=== PATIENT | female | born 1960 | race Caucasian/White ===

== ENCOUNTER 2018-11-16 11:59 | Outpatient (REF) | payer BC, SELFPAY ==
[2018-11-16 21:15] LABS: Calculated LDL 191 mg/dL; Cholesterol 278 mg/dL (50-200); HDL Cholesterol 70 mg/dL (40-60); Triglyceride 87 mg/dL (30-150)
[2018-11-17 17:04] LABS: Glucose 90 mg/dL (70-100); TSH 4.17 uIU/mL (0.358-3.74)
== END 2018-11-16 12:19 ==
LOC: NCHCN 11:59
PROVIDERS: PCP Physician Assistant Medical; Visit Provider Physician Assistant Medical
DX: Z00.00 Encounter for general adult medical examination without abnormal findings (principal); E03.9 Hypothyroidism, unspecified; Z13.1 Encounter for screening for diabetes mellitus
CPT/HCPCS: 80061; 82947; 83721; 84443

== ENCOUNTER 2018-12-02 00:40 | Outpatient (CLI) | payer BC, SELFPAY ==
--- NOTE | 2018-12-02 10:10 | DI.MAMMO_ITS ---
SYMPTOM/DIAGNOSIS: HEALTH MAINT EXAM Z00.8 BILATERAL SCREENING MAMMOGRAM: Mammograms were interpreted according to the usual protocol including computer analysis with CAD system, tomosynthesis and C view imaging. Comparison is made with exams from 2013 through 2017. The breasts are composed of scattered fibroglandular densities, breast density category B. No suspicious masses or suspicious microcalcifications are seen. There has been no significant change. IMPRESSION: Category 1, negative mammogram. Yearly screening mammography is recommended. Breast density category B. SA ASSESSMENT OF FINDINGS: Negative. Category 1. Patient will receive a letter notifying them of these results. BI-RADS category B. There are scattered areas of fibroglandular density.
== END 2018-12-02 01:00 ==
PROVIDERS: PCP Physician Assistant Medical; Visit Provider Physician Assistant Medical
DX: Z00.00 Encounter for general adult medical examination without abnormal findings (principal); Z12.31 Encounter for screening mammogram for malignant neoplasm of breast
CPT/HCPCS: 77063; 77067

== ENCOUNTER 2019-01-20 15:18 | Outpatient (CLI) | payer BC, SELFPAY | END 2019-01-20 15:38 | PROVIDERS: PCP Physician Assistant Medical; Visit Provider Physician Assistant Medical | DX: E03.9 Hypothyroidism, unspecified (principal) | CPT/HCPCS: 36415; 84443 ==

== ENCOUNTER 2020-12-04 12:29 | Outpatient (REF) | payer OTHER, SELFPAY ==
[2020-12-04 22:01] LABS: TSH 2.27 uIU/mL (0.36-3.74)
== END 2020-12-04 12:30 | disposition home or self-care (01) ==
LOC: NCHCN 12:29
PROVIDERS: PCP Physician Assistant Medical; Visit Provider Physician Assistant Medical
DX: E03.9 Hypothyroidism, unspecified (principal)
CPT/HCPCS: 84443

== ENCOUNTER 2021-01-21 02:01 | Outpatient (CLI) | payer OTHER, SELFPAY ==
--- NOTE | 2021-01-21 08:30 | DI.MAMMO_ITS ---
Exam(s) MAMMO SCREENING EXAM: MAMMO SCREENING CLINICAL HISTORY: SCREENING,HEALTH MAINTENANCE EXAM,Z00.8 TECHNIQUE: Mammograms were interpreted according to the usual protocol including computer analysis w [employer] CAD system, tomosynthesis and C-view imaging. COMPARISON: 2012 through 2018 FINDINGS: The breasts are composed of scattered fibroglandular densities, Breast Density category B. No suspicious masses or suspicious microcalcifications are seen. No skin thickening or abnormal axillary lymph nodes are seen. There has been no significant change from prior exams. IMPRESSION: BI-RADS Category 1, Negative mammogram Yearly screening mammography is recommended. Breast Density - Category B, scattered fibroglandular densities. A negative radiographic report should not delay biopsy if a dominant or clinically suspicious mass is present. Up to ten percent of cancers are not identified on mammography. A negative report may reinforce clinical impression. Adenosis and dense breasts may obscure an underlying neoplasm. False positive reports average 6 to 10%. Patient will receive a letter notifying them of these results.
== END 2021-01-21 02:21 ==
PROVIDERS: PCP Physician Assistant Medical; Visit Provider Physician Assistant Medical
DX: Z12.31 Encounter for screening mammogram for malignant neoplasm of breast (principal)
CPT/HCPCS: 77063; 77067

== ENCOUNTER 2022-04-18 10:19 | Emergency (ER) | payer OTHER, SELFPAY ==
[2022-04-18 10:32] VITALS: BP 160/90; PULSE 59; RESP 18; TEMP 36.9; O2SAT 97
[2022-04-18 10:36] VITALS: BP 160/90; PULSE 59; RESP 18; TEMP 36.9; O2SAT 97
--- NOTE | 2022-04-18 10:49 | ED.GENADUL_ITS ---
Discharge Plan Disposition Patient Disposition: Home Discharge Details Clinical Impression: Back pain Primary Care Provider: Susan Ellis ED Provider: Coleman Stout Home Meds and New Rx's Prescriptions: No Action citalopram 20 MG tablet 20 mg PO DAILY Discharge Instructions Instructions: Back Pain (ED) Additional Instructions: Please apply 1 lidocaine patch 4% [id number], or the affected area 12 hours a day. I suggest you use the Lyrica titrating the day so that at night you may apply some warm compresses. You may take up to 400 mg every 8 hours for the pain you may also take Tylenol 650 mg every 6 hours for the pain. Please follow-up with physical therapy as planned and then follow-up with your primary care doctor. Medical Decision Making Patient with what appears to be musculoskeletal pain. I have advised her to use some [id number] lidocaine patch and continue taking Tylenol Motrin for the pain. I have advised her to pursue physical therapy as ordered by her primary care doctor. I do not believe she requires any blood work or any imaging at this point Sign Out No HPI General Date/Time Provider Initiated Documentation: 04/18/22 10:49 . HPI Narrative: 62-year-old lady presents to the emergency room for evaluation of right upper back pain. She states the pain started proximately 2 months ago. She attributes it to long drive to [place] over the summer because her son was hospitalized at [facility]. The pain has been progressively getting worse. Is located to the right upper underneath the rib line. Pain is worse with range of motion. Pain is worse with touching. She had not noticed but the pain appears to be exacerbated but deep breath. The pain got worse last night. She took some ibuprofen. She had reached out to her primary care doctor who has ordered some physical therapy that has not started yet. No chest pain. No shortness of breath. No dysuria. No frequency no hematuria. No fevers no chills Related Data Home Medications Medication Instructions Recorded Confirmed citalopram 20 mg tablet 20 mg PO DAILY 02/11/13 02/11/13 Allergies Allergy/AdvReac Type Severity Reaction Status Date / Time No Known Allergies Allergy Unverified 02/11/13 08:53 Review of Systems Narrative: Constitutional is been negative for fever chills, negative for malaise, negative for fatigue. Eyes: No visual changes, no tearing ENT: No sore throat, no pain in the ears, no hearing change, no rhinorrhea Cardiovascular no chest pain, no shortness of breath with exertion, no palpitations, no lightheadedness Respiratory: No shortness of breath, no cough, GI: No abdominal pain, no diarrhea, no nausea, no vomiting, no dark stools : No dysuria, no frequency, no hematuria MSK: No myalgias, no arthralgias Skin: No rash Neurological: No headaches, no focal weakness, no paresthesias, no dizziness Psych: No anxiety, no depression Endo: No weight gain no weight loss Hematology/lymph: No painful nodes, no easy bleeding, not on blood thinners PFSH All Active Problems (Updated 04/18/22 @ 10:58 by Coleman Stout MD) Back pain (Acute) Social History Smoking/Tobacco Use Status: Never Smoking risk assessment performed?: Yes Drug use: Never Exam Narrative Exam Narrative: General: A,A Ox3, Calm, no apparent distress, well developed, pleasant and cooperative Head Size/Shape: normocephalic, atraumatic Eyes Pupils: PERRLA Extraocular Mobility: intact and symmetrical Conjunctiva: non-injected, anicteric, no discharge Oral Cavity: moist Neck supple Respiratory Respiratory Effort: no dyspnea Auscultation: normal WOB Cardiovascular nornal cap refill Musculoskeletal System Joints, Bones, and Muscles: no deformities Back. Normal inspection. No midline tenderness. He is got discrete tenderness palpation over the right upper back. This appears muscular in etiology. No crepitus. No deformities no masses Extremities: warm and well-perfused, no cyanosis, capillary refill <2 seconds Skin Skin Inspection: no rash, no lesions, no bruising Neurological Motor: normal tone, normal strength, moving all extremities equally Psychiatric: good insight, good judgement, normal mood and affect
== END 2022-04-18 17:55 | disposition home or self-care (01) ==
PROVIDERS: Emergency Provider Emergency Medicine; PCP Physician Assistant Medical
DX: M54.9 Dorsalgia, unspecified (principal)
CPT/HCPCS: 99282

== ENCOUNTER 2022-05-22 09:47 | Outpatient (REF) | payer OTHER, SELFPAY ==
[2022-05-22 15:28] LABS: ALT 19 U/L (14-59); AST 22 U/L (15-37); Albumin 3.6 g/dL (3.4-5.0); Alkaline Phosphatase 78 U/L (46-116); BUN 18 mg/dL (7-18); Bilirubin, Total 0.5 mg/dL (0.2-1.0); Calcium 9.2 mg/dL (8.5-10.1); Calculated LDL 221 mg/dL (<100); Chloride 104 mmol/L (98-107); Cholesterol 315 mg/dL (<200); Estimated GFR 64.49 (mL/min/1.73m2); Glucose 95 mg/dL (74-106); HDL Cholesterol 71 mg/dL (40-60); Potassium 4.3 mmol/L (3.5-5.1); Sodium 139 mmol/L (136-145); TSH 3.31 uIU/mL (0.36-3.74); Total Protein 7.5 g/dL (6.4-8.2); Triglyceride 119 mg/dL (<150)
== END 2022-05-22 09:48 | disposition home or self-care (01) ==
LOC: NCHCN 09:47
PROVIDERS: PCP Physician Assistant Medical; Visit Provider Physician Assistant Medical
DX: Z00.00 Encounter for general adult medical examination without abnormal findings (principal); E03.9 Hypothyroidism, unspecified
CPT/HCPCS: 80053; 80061; 84443

== ENCOUNTER 2022-09-24 11:35 | Outpatient (REF) | payer OTHER, SELFPAY ==
[2022-09-24 16:27] LABS: ALT 31 U/L (14-59); AST 20 U/L (15-37); Albumin 3.7 g/dL (3.4-5.0); Alkaline Phosphatase 91 U/L (46-116); Anion Gap 6.2 mmol/L (3-11); BUN 13 mg/dL (7-18); Bilirubin, Total 0.4 mg/dL (0.2-1.0); CO2 29.8 mmol/L (21.0-32.0); CREATININE 0.9 mg/dL (0.55-1.02); Calcium 9.2 mg/dL (8.5-10.1); Calculated LDL 128 mg/dL (<100); Chloride 103 mmol/L (98-107); Cholesterol 228 mg/dL (<200); Estimated GFR 73.19 (mL/min/1.73m2); Glucose 92 mg/dL (74-106); HDL Cholesterol 78 mg/dL (40-60); Potassium 4.2 mmol/L (3.5-5.1); Sodium 139 mmol/L (136-145); Total Protein 7.6 g/dL (6.4-8.2); Triglyceride 111 mg/dL (<150)
== END 2022-09-24 11:36 | disposition home or self-care (01) ==
LOC: NCHCN 11:35
PROVIDERS: PCP Physician Assistant Medical; Visit Provider Physician Assistant Medical
DX: Z00.00 Encounter for general adult medical examination without abnormal findings (principal); E03.9 Hypothyroidism, unspecified
CPT/HCPCS: 80053; 80061; 84443

== ENCOUNTER 2023-05-05 10:25 | Outpatient (REF) | payer OTHER, SELFPAY ==
[2023-05-05 17:15] LABS: Calculated LDL 228 mg/dL (<100); Cholesterol 324 mg/dL (<200); HDL Cholesterol 73 mg/dL (40-60); TSH 3.64 uIU/mL (0.36-3.74); Triglyceride 119 mg/dL (<150)
[2023-05-05 17:23] LABS: Hemoglobin A1C 5.9 % (<5.7)
== END 2023-05-05 10:26 | disposition home or self-care (01) ==
LOC: NCHCN 10:25
PROVIDERS: PCP Physician Assistant Medical; Visit Provider Physician Assistant Medical
DX: E03.9 Hypothyroidism, unspecified (principal); E78.5 Hyperlipidemia, unspecified; R73.03 Prediabetes
CPT/HCPCS: 80061; 83036; 84443

== ENCOUNTER → 2023-05-28 02:06 | Outpatient (CLI) | payer OTHER, SELFPAY ==
--- NOTE | 2023-05-28 | DI.MAMMO_ITS ---
Exam(s) MAMMO SCREENING EXAM: MAMMO SCREENING CLINICAL HISTORY: SCREENING MAMMO FOR BREAST CANCER Z12.31 TECHNIQUE: Mammograms were interpreted according to the usual protocol including computer analysis w [employer] CAD system, tomosynthesis and C-view imaging. COMPARISON: 2014 through 2020 FINDINGS: The breasts are composed of scattered fibroglandular densities, Breast Density category B. No suspicious masses or suspicious microcalcifications are seen. No skin thickening or abnormal axillary lymph nodes are seen. There has been no significant change from prior exams. IMPRESSION: BI-RADS Category 1, Negative mammogram Yearly screening mammography is recommended. Breast Density - Category B, scattered fibroglandular densities. A negative radiographic report should not delay biopsy if a dominant or clinically suspicious mass is present. Up to ten percent of cancers are not identified on mammography. A negative report may reinforce clinical impression. Adenosis and dense breasts may obscure an underlying neoplasm. False positive reports average 6 to 10%. Patient will receive a letter notifying them of these results.
== END ==
PROVIDERS: PCP Physician Assistant Medical; Visit Provider Physician Assistant Medical
DX: Z12.31 Encounter for screening mammogram for malignant neoplasm of breast (principal); R92.323 Mammographic fibroglandular density, bilateral breasts
CPT/HCPCS: 77063; 77067

== ENCOUNTER 2024-03-28 07:38 | Day surgery (SDC) | payer OTHER, SELFPAY ==
--- NOTE | 2024-03-27 15:47 | W.PM.DSUDISC ---
Date of service: 03/28/24 Time of Service: 09:35 Discharge Plan Disposition Patient Disposition: Home Condition: Good Discharge Details Reason For Visit: screening colonoscopy Attending Provider: Kye Sanches Primary Care Provider: Susan Ellis Home Meds and New Rx's Prescriptions: Continued atorvastatin 10 mg tablet 10 mg PO DAILY fluticasone propionate 220 mcg/actuation HFA aerosol inhaler 2 puff inhalation BID PRN levothyroxine [Synthroid] 88 mcg tablet 100 mcg PO DAILY Discontinued bisacodyl [Dulcolax (bisacodyl)] 5 mg tablet,delayed release (DR/EC) 5 mg PO ONCE Qty: 4 0RF Rx Instructions: Take per colonoscopy instructions provided by ordering providers office polyethylene glycol 3350 17 gram/dose powder 17 g PO ONCE Qty: 238 0RF Rx Instructions: Take per colonoscopy instructions provided by ordering providers office Discharge Instructions Instructions: Colon polyps, Diverticulosis Additional Instructions: Ivana, is very nice meeting you today, and I hope you were comfortable during the procedure. I did find, and removed, and a single polyp today. This will be sent off for testing, since polyps, different varieties, and we will use that information to guide the timing of your next colonoscopy. Those results usually take a week or 2, but once the office has them, we will be in touch. If you have any questions at all or need anything in the meantime, please do not hesitate to ask. 1. If tolerated, consume a soft, low fiber diet for 1-2 days. [address] Do not drive, drink alcohol, operate machinery, make critical decisions, or do activities that require coordination or balance for 24 hours. 3. Because air was put into your colon during the procedure, expelling air from your rectum (passing gas or farting) is normal. 4. You may not have a bowel movement for 1-3 days because of the colonoscopy prep. This is normal. 5. Go directly to the emergency room if you notice any of the following: Develop chills (warm to touch), or if you have a thermometer and your temperature is above 101 Difficulty breathing or difficultly swallowing Persistent vomiting Severe abdominal pain, other than gas cramps Severe chest pain Black, tarry stools Any bleeding ? exceeding one tablespoon 6. Call your physician if the site where your intravenous was started becomes red, swollen, painful, and warm to touch. 7. Your physician has reviewed your pre-procedure medications. Please continue to take those medications as previously ordered. You will be given specific information/education regarding any changes to your medications before leaving. Stand Alone Forms: Anesthesia Discharge InstRylie Gallagher (DSU) Activity:: Activity as Tolerated Diet:: As Tolerated Discharge Orders Discharge Orders: Discharge Order (Routine); Ordered 03/27/24 Ordered By: Kye Sanches DS: Diagnosis Discharge Diagnosis (1) Encounter for screening colonoscopy: Status: Acute Asessment and Plan: Follow-up on polypectomy results
--- NOTE | 2024-03-27 15:49 | W.COLOREPORT ---
Date of service: 03/28/24 Time of Service: 09:37 Colonoscopy Report Date of procedure: 03/28/24 Pre-op diagnosis general: screening colonoscopy Post-op diagnosis procedure note: other (Colon polyp) Procedure: colonoscopy with polypectomy Surgeon: Kye Sanches Anesthesia Type: General:No Airway Estimated blood loss (mL): 5 Pathology: other (0.25 cm flat polyp at 35 cm) Complications: None Disposition: same day Indications: Saida is a 63 year old woman who needs her next screening colonoscopy Prep: Miralax/Dulcolax Procedure Start Time: : Procedure End Time: : Retraction Time: 11 Findings: 0.25 cm flat polyp at 35 cm from the anus; sigmoid diverticulosis Procedure Description: After the induction of anesthesia, and with the patient in left lateral decubitus position, I began by performing an external anorectal exam.? Perineum and skin were normal, as was the anal verge.? There was no evidence of external hemorrhoids.? Next, I performed a digital rectal exam.? I did not appreciate any abnormal findings.? Next, I advanced a colonoscope into the rectal vault.? I performed retroflexion.? This appeared normal.? Using insufflation, I then advanced the colonoscope beyond the rectal folds and into the sigmoid colon before advancing towards the cecum.? There is a narrow mouth sigmoid diverticulosis.? The scope was noted to be in the cecum by identification of the ileocecal valve and appendiceal orifice.? I then began withdrawing the colonoscope using repeated irrigation as necessary for full evaluation of the colonic mucosa. ?Around 35 cm from the anal verge was a 0.25 cm flat polyp. This was removed piecemeal with cold forceps. There is minimal bleeding from the site. Once the scope was withdrawn to the level of the rectum, great care was taken to examine portions of the rectal folds.? Finally, the scope was withdrawn and the patient was brought to the same-day surgery recovery unit as the anesthetic wore off. ?The findings and instructions were shared with the patient prior to discharge. [place] Bowel Prep [place] Bowel Prep Right Colon: 3 Left Colon: 3 Transverse Colon: 3 Total Score: 9
[2024-03-28 07:58] VITALS: BP 128/83; PULSE 78; RESP 16; TEMP 36.2; O2SAT 94
[2024-03-28] MEDS: Normal Saline Flush 10 ML SYR IV (08:15)
--- NOTE | 2024-03-28 08:59 | W.ANESPRE ---
General Info Date of Service Date Performed: 03/28/24 Height: 5 ft 6 in Weight: 110.5 kg Body Mass Index (BMI): 39.3 Surgical Procedure: Operation Date: 03/28/24 09:05 Proposed Procedure Side Surgeon p Colonoscopy Kye Sanches MD Actual Procedure Side Surgeon p Colonoscopy Not Applicable Kye Sanches MD Pre-Op Diagnosis Post-Op Diagnosis colonoscopy Meds Allergies and Home Medications Allergies Allergy/AdvReac Type Severity Reaction Status Date / Time No Known Allergies Allergy Verified 03/28/24 07:59 Home Medication ?Medication ?Instructions ?Recorded fluticasone propionate 220 2 puff inhalation BID PRN 07/16/23 mcg/actuation HFA aerosol inhaler atorvastatin 10 mg tablet 10 mg PO DAILY 03/17/24 levothyroxine 88 mcg tablet 100 mcg PO DAILY 03/17/24 (Synthroid) Current Visit Medications: Current Medications Generic Name Dose Route Start Last Admin Trade Name Freq PRN Reason Stop Dose Admin IV Miscellaneous Supplies 1 each 03/28/24 06:00 Iv Access IV 03/28/24 23:59 DIRECTED ROBERT Ondansetron HCl 4 mg 03/27/24 15:50 Ondansetron 4 Mg/2 Ml Vial IVP 04/26/24 15:49 Q4H PRN PRN Nausea / Vomiting Sodium Chloride 0 ml 03/28/24 06:00 03/28/24 08:15 Normal Saline Flush 10 Ml Syr IV 03/28/24 23:59 10 ml PRN PRN Administration Sodium Chloride 0 ml 03/28/24 06:00 Normal Saline 10 Ml Vial IJ 03/28/24 23:59 DIRECTED PRN Sterile Water 0 ml 03/28/24 06:00 Water,Injection,Sterile 10 Ml Vial IJ 03/28/24 23:59 DIRECTED PRN PFSH Active Problems Active Problems: Problem Status Onset Code Encounter for screening colonoscopy Acute Z12.11 Acute asthma Acute J45.909 Hypothyroidism Chronic E03.9 Medical History Medical History High cholesterol Surgical History Surgical History Hx of unilateral oophorectomy left Hx of colonoscopy History of LAVH Tobacco Smoking/Tobacco Use Status: Never Alcohol Alcohol Intake: current Alcohol intake frequency: a few times a month Alcohol type: hard liquor Substance Use Substance use: Never Substance use type: does not use Details: alcohol: t-7 Vital Signs and Lab Results Vital Signs Most Recent Vital Signs in EMR: Most Recent Vital Signs Temp Pulse Resp BP Pulse Ox 36.2 C L 78 16 128/83 94 03/28/24 07:58 03/28/24 07:58 03/28/24 07:58 03/28/24 07:58 03/28/24 07:58 Lab Results Blood Type / Crossmatch: No Data to Display Complete Blood Count: No Data to Display Complete Metabolic Panel: No Data to Display Liver Function Panel: No Data to Display Coagulation Panel: No Data to Display Cardiac Panel: No Data to Display Arterial Blood Gas: No Data to Display Venous Blood Gas: No Data to Display Pancreas Panel: No Data to Display Thyroid Panel: No Data to Display Infectious Disease: No Data to Display Blood Cultures: No Data to Display Toxicology Panel: No Data to Display Anesthesia Assessment and Plan Anesthesia History Personal History: No History of Anesthesia Complications Family History: No Family History of Anesthesia Complications Exercise Tolerance Exercise Tolerance: Metabolic Equivalents>4 Pertinent Negatives Pertinent Negatives: No Symptoms of GERD Cardiac & Pulmonary Exam Cardiac Exam: Normal S1/S2 Heart Sounds Pulmonary Exam: Clear Bilateral Breath Sounds Implantable Cardiac Device Does patient have a Pacemaker or an ICD?: No Airway Exam Known Difficult Airway: No Mallampati Class: 2 Mouth Opening: Normal (> 3cm) Thyromental Distance: Greater than 3 cm Neck Range of Motion: Full ROM Neck Circumference: Normal Teeth Condition: Normal Dentition ASA Classification ASA Score: ASA 2 Emergency Case?: No NPO Status NPO Status: NPO Clears >2 hours, Solids >8 hours Anesthesia Plan Resuscitation Status: Full Code Anesthesia Technique: General Anesthesia Airway Planned: Natural Airway Monitors Used: Standard Monitors
[2024-03-28 09:00] VITALS: BMI 39.3
--- NOTE | 2024-03-28 09:25 | BOWEL_PTH ---
PATIENT: Saida Verma LOC: [facility] U#:[id number] AGE/SX: 63/F ROOM: RE03/28/[address]: Kye Sanches MD : 1960 BED: DIS: 03/28/2024 SPEC #: [id number] RECD: 03/28/24 12:50 STATUS: SOUTono REQ #: [id number] MAGGIE: 03/28/24 09:[address]: Kye Sanches DEPT: Surgical Specimen RECD BY: Megan Esquivel ENTERED: 03/28/24 12:51 SP TYPE: Bowel OTHR DR: Susan Ellis Tissues: 1 - BIOPSY BOWEL Procedures: GROSS AND MICRO LEVEL 4 Comments: [id number]
[2024-03-28 09:34] VITALS: BP 113/66; PULSE 84; RESP 20; TEMP 36.5; O2SAT 92
--- NOTE | 2024-03-28 09:43 | W.ANESPOSTOP ---
Postoperative Evaluation Date, Time and Location Date Performed: 03/28/24 Time Performed: 09:43 Patient Location: Day Surgery Unit Vital Signs Most Recent Imported Vital Signs: Most Recent Vital Signs Temp Pulse Resp BP Pulse Ox 36.5 C 84 20 113/66 92 03/28/24 09:34 03/28/24 09:34 03/28/24 09:34 03/28/24 09:34 03/28/24 09:34 Pain Score Most Recent Pain Score: Most Recent Pain Score Pain Level 0 03/28/24 09:34 Assessment Mental Status: Awake (Alert & Oriented to Patient Baseline) Airway and Respiratory Function: Patent airway with normal (patient baseline) respiratory exam Cardiovascular Function: Hemodynamically Stable Hydration Status: Adequately Hydrated Nausea & Vomiting: No Nausea or Vomiting Pain: Pt. Denies Any Pain Peripheral Nerve Block: Patient did not receive a nerve block
[2024-03-28 10:02] VITALS: BP 112/60; PULSE 66; RESP 18; TEMP 35.9; O2SAT 98
== END 2024-03-28 10:24 | disposition home or self-care (01) ==
LOC: SUR 07:39
PROVIDERS: PCP Physician Assistant Medical; Visit Provider Surgery
PROC: 0DJD8ZZ Inspection of Lower Intestinal Tract, Via Natural or Artificial Opening Endoscopic (ICD-10-PCS; CPT 45378; principal; 2024-03-28 09:00)
DX: Z12.11 Encounter for screening for malignant neoplasm of colon (principal); K63.5 Polyp of colon; K57.30 Diverticulosis of large intestine without perforation or abscess without bleeding
CPT/HCPCS: 45380; 88305; J2003; J2704

== ENCOUNTER 2024-05-31 18:32 | Outpatient (REF) | payer OTHER, SELFPAY ==
[2024-05-31 22:40] LABS: ALT 19 U/L (14-59); AST 28 U/L (15-37); Albumin 3.6 g/dL (3.4-5.0); Alkaline Phosphatase 82 U/L (46-116); Anion Gap 7.5 mmol/L (3-11); BUN 19 mg/dL (7-18); Bilirubin, Total 0.42 mg/dL (0.2-1.0); CO2 29.5 mmol/L (21.0-32.0); CREATININE 1.1 mg/dL (0.55-1.02); Calcium 9.7 mg/dL (8.5-10.1); Calculated LDL 124 mg/dL (<100); Chloride 107 mmol/L (98-107); Cholesterol 226 mg/dL (<200); Estimated GFR 56.81 (mL/min/1.73m2); Glucose 108 mg/dL (74-106); HDL Cholesterol 73 mg/dL (40-60); Potassium 4.4 mmol/L (3.5-5.1); Sodium 144 mmol/L (136-145); TSH (W/Ref FT4) 1.41 uIU/mL (0.36-3.74); Total Protein 7.5 g/dL (6.4-8.2); Triglyceride 146 mg/dL (<150)
[2024-05-31 22:52] LABS: Creatine Kinase 127 U/L (26-192)
[2024-06-01 18:25] LABS: Estradiol <12 pg/mL (See Note)
== END 2024-05-31 18:33 | disposition home or self-care (01) ==
LOC: NCHCN 18:32
PROVIDERS: PCP Physician Assistant Medical; Visit Provider Physician Assistant Medical
DX: E03.9 Hypothyroidism, unspecified (principal); E78.5 Hyperlipidemia, unspecified; R10.2 Pelvic and perineal pain
CPT/HCPCS: 80053; 80061; 82550; 82670; 83036; 84443

== ENCOUNTER 2024-06-06 16:39 | Outpatient (CLI) | payer OTHER, SELFPAY ==
--- NOTE | 2024-06-06 | DI.US_ITS ---
Exam(s) US PELVIS TRANSVAGINAL EXAM: US PELVIS TRANSVAGINAL CLINICAL HISTORY: R10.2 Pelvic pain and Perineal pain. TECHNIQUE: Transabdominal and transvaginal pelvic ultrasound was performed using standard protocol. COMPARISON: US PELVIS TRANSVAG from 05/27/2010 FINDINGS: UTERUS: Status post hysterectomy. Cervix: Unremarkable. OVARIES: Status post left oophorectomy. Right: 1.6 x 0.5 x 0.8 cm Cyst or mass: No suspicious cystic or solid masses. DOPPLER: Color: There is blood flow seen to the right ovary. CUL-DE-SAC: Free fluid: None. Other: None. IMPRESSION: 1. Status post hysterectomy and left oophorectomy. 2. The right ovary is grossly unremarkable. DATA REPOSITORY:
--- NOTE | 2024-06-06 | DI.RAD_ITS ---
Exam(s) XR CHEST 2V PA LATERAL EXAM: XR CHEST 2V PA LATERAL CLINICAL HISTORY: J18.9 Pneumonia, unspecified TECHNIQUE: 2D digital imaging was performed of the chest. Two images were obtained. PA and lateral views were obtained. COMPARISON: CR CHEST 2 VIEWS PA,LAT from 04/30/2017 FINDINGS: MEDIASTINUM: Normal. HEART: Normal. PULMONARY VASCULATURE: Normal. LUNGS: No focal consolidating infiltrates. PLEURAL SPACE: No pleural effusion or pneumothorax. BONE:Within normal limits for the patient's age. OTHER FINDINGS:Normal. IMPRESSION: No acute pulmonary findings. DATA REPOSITORY: RADIATION DOSE DELIVERED:
== END 2024-06-06 16:59 ==
PROVIDERS: PCP Physician Assistant Medical; Visit Provider Physician Assistant Medical
DX: R10.2 Pelvic and perineal pain (principal); Z98.890 Other specified postprocedural states
CPT/HCPCS: 71046; 76830; 76856

== ENCOUNTER 2024-12-01 10:51 | Outpatient (CLI) | payer OTHER, SELFPAY ==
--- NOTE | 2024-12-01 | DI.RAD_ITS ---
Exam(s) XR CHEST 2V PA LATERAL EXAM: XR CHEST 2V PA LATERAL CLINICAL HISTORY: COUGH, R05.9 TECHNIQUE: 2D digital imaging was performed. Two views. COMPARISON: No exams were available for comparison FINDINGS: HEART: Normal size. Aorta: Not dilated. PULMONARY VASCULATURE: Normal. MEDIASTINUM: Unremarkable. LUNGS: Clear. PLEURAL SPACE: No pleural effusion or pneumothorax. BONE:Unremarkable for age. SOFT TISSUES: Unremarkable. IMPRESSION: No acute abnormality. DATA REPOSITORY: RADIATION DOSE DELIVERED:
== END 2024-12-01 11:11 ==
LOC: DI 10:52
PROVIDERS: PCP Physician Assistant Medical; Visit Provider Physician Assistant Medical
DX: R05.9 Cough, unspecified (principal)
CPT/HCPCS: 71046

== ENCOUNTER 2025-03-03 03:18 | Outpatient (CLI) | payer OTHER, SELFPAY ==
--- NOTE | 2025-03-03 13:50 | DI.RAD_ITS ---
Exam(s) XR KNEE LT 3V AP,LAT,ROBERT EXAM: XR KNEE LT 3V AP,LAT,ROBERT CLINICAL HISTORY: LT KNEE PAIN, M25.562. TECHNIQUE: 2D digital imaging was performed. Three views. COMPARISON: No exams were available for comparison FINDINGS: BONES: No acute fracture is present. No bony destructive lesion is seen. Small enthesophyte at quadriceps insertion on patella. JOINTS: The knee is normally aligned. Mild medial femoral tibial joint space narrowing and periarticular spurring. Mild spurring at the articular aspect of the patella. No joint effusion is seen. SOFT TISSUE: Normal. IMPRESSION: Mild degenerative changes. DATA REPOSITORY: RADIATION DOSE DELIVERED:
== END 2025-03-03 03:38 ==
PROVIDERS: PCP Physician Assistant Medical; Visit Provider Family Medicine
DX: M25.562 Pain in left knee (principal); M17.12 Unilateral primary osteoarthritis, left knee
CPT/HCPCS: 73562